=== PATIENT | female | born 1955 | race Caucasian/White ===

== ENCOUNTER → 2020-05-28 10:32 | Outpatient (CLI) | payer BC | END | disposition home or self-care (01) | LOC: D.HCCECHO 10:32 | PROVIDERS: ATTEND Internal Medicine Cardiovascular Disease | DX: R01.1 Cardiac murmur, unspecified (principal); I20.9 Angina pectoris, unspecified ==

== ENCOUNTER 2020-06-11 10:49 | Outpatient (CLI) | payer BC ==
[~2020-06-11] VITALS: Ht 157.5 cm; Wt 106.4 kg
--- NOTE | ~2020-06-11 | HEMODYNAMI ---
PATIENT:CHANDLER CERVANTES MEDICAL RECORD: [id number] : 57 LOCATION:[facility] ADMISSION DATE: 06/11/20 Generatedon:06/11/202013:03 Patient name: CHANDLER CERVANTES Patient #: [id number] SSN: [id number] : 1955 Date of study: 06/11/2020 Page: Of Hemodynamic Procedure Report Patient Data Patient Demographics Procedure consent was obtained First Name: CHANDLER Gender: Female Last Name: JAMEL DUNN : 1955 Middle Initial: RENETTA Age: 65 year(s) Patient #: [id number] Race: Unknown SSN: [id number] Additional ID: [id number] Contact details [address]: [address] [place] [address] State: [place] City: [place] Zip code: [address] Past Medical History Allergies Allergen Reaction Date Comments Reported Other allergy 06/11/2020 lisinopril Admission Admission Data Admission Date: 06/11/2020 Admission Time: 10:49 Arrival Date: 06/11/2020 Arrival Time: 0:00 Height (in.): 61.81 BSA: 2.04 (m2) Height (cm.): 157 BMI: 43 (kg/m2) Weight (lbs.): 233.69 Weight (kg.): 106 Lab Results Lab Result Date: 06/11/2020 Lab Result Time: 0:00 Biochemistry Name Units Result Min Max BUN mg/dl 14 --(--*-)-- 7 18 Creatinine mg/dl 0.7 --(*---)-- 0.6 1.3 eGFR ml/min 88.70707 -*(----)-- 90 120 NONAFRICAN CBC Name Units Result Min Max Hematocrit % 41.8 -*(----)-- 42 54 Hemoglobin g/dl 14 --(*---)-- 13.5 17.5 Procedure Procedure Types Cath Procedure Diagnostic Procedure [facility] Coronaries only Aortic Root Angiography Procedure Description Procedure Date Procedure Date: 06/11/2020 Procedure Start Time: 12:48 Procedure End Time: 13:01 Procedure Staff Name Function Dago Da Silva MD Performing Physician Shruti Lentz RT Monitor Mansi Roach RN Nurse Maria De Jesus Osborn RT Scrub Procedure Data Cath Procedure Fluoroscopy Diagnostic fluoroscopy Total fluoroscopy Time: 4.2 time: 4.2 min min Diagnostic fluoroscopy Total fluoroscopy dose: 674 dose: 674 mGy mGy Contrast Material Contrast Material Type Amount (ml) Isovue 300 90 Entry Location Entry Primary Successful Side Size Upsize Upsize Entry Closure Briggs ccessful Closure Location (Fr) 1 (Fr) 2 (Fr) Remarks Device Remarks Radial Right 6 Fr Mechanical artery Short Compression Estimated blood loss: 5 ml Diagnostic catheters Device Type Used For End Catheter Placement DIAGNOSTIC Gay 110cm 5 Procedure Fr catheter ([id number]) DIAGNOSTIC Pigtail 5Fr LV Angiography catheter ([id number]) Procedure Complications No complications Procedure Medications Medication Administration Route Dosage 0.9% NaCl I.V. 100 ml/hr Oxygen etCO2 Nasal cannula 2 l/min Lidocaine 2% added to field 20 Heparin Flush Bag added to field 2 bags (1000units/500ml NS) Radial Cocktail added to field 1 syringe (Verapamil 2mg/Nitro 400mcg/Heparin 1500units) Versed I.V. 2 mg Fentanyl I.V. 50 mcg Hemodynamics Rest BSA: 2.04 (m2) HGB: 14 (g/dl) O2 Consumption: Estimated: 185.53 (ml/min) O2 Cons umption indexed: Estimated:90.95 (ml/min/m) Heart Rate: 63 (bpm) Snapshots Pre Cath Intra NCS Post Cath Vital Signs Time Heart Resp SPO2 etCO2 NIBP (mmHg) Rhythm Pain Sedation Rate (ipm) (%) (mmHg) Status Level (bpm) 12:36:19 68 20 99 41.8 175/83(151) NSR 0 (11) 10(A) , No pain 12:41:11 71 18 98 0.7 175/85(113) NSR 0 (11) 10(A) , No pain 12:45:54 71 16 96 11.9 158/83(110) NSR 0 (11) 10(A) , No pain 12:50:43 78 17 98 37.3 132/72(110) NSR 0 (11) 10(A) , No pain 12:55:13 81 16 93 49.2 145/87(131) NSR 0 (11) 10(A) , No pain 12:59:50 92 42.6 165/89(115) NSR 0 (11) 10(A) , No pain Medications Time Medication Route Dose Verified Delivered Reason Notes E ffectiveness by by 12:35:01 0.9% NaCl I.V. 100 Dago Mansi used for ml/hr Avinash Doc procedure MD MEYER 12:35:08 Oxygen etCO2 2 l/min Dago Mansi used for Nasal Avinash Doc procedure cannula MD MEYER 12:35:12 Lidocaine 2% added 20ml Dago Dago for local to vial [facility] anesthetic field MD IBARRA 12:35:16 Heparin Flush added 2 bags Dago Dago used for Bag to [facility] procedure (1000units/500ml field MD IBARRA NS) 12:35:22 Radial Cocktail added 1 Dago Dago used for (Verapamil to syringe [facility] procedure 2mg/Nitro field MD IBARRA 400mcg/Heparin 1500units) 12:47:48 Versed I.V. 2 mg Dago Mansi for [facility] Eugen[facility] Roach sedation MD MEYER 12:47:58 Fentanyl I.V. 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 12:21:33 Maria De Jesus Osborn RT(R) sent for patient. Start room use. 12:21:35 Time tracking: Regular hours (M-F 7:00 - 5:00) 12:21:43 Plan of Care:Hemodynamics will remain stable., Cardiac rhythm will remain stable., Comfort level will be maintained., Respiratory function will remain adequate., Patient/ family verbilizes understanding of procedure., Procedure tolerated without complication., Recovers from procedure without complications.. 12:21:51 ACC Patient presents with Stable Angina CCS Anginal Class 1--Ordinary physical activity does not cause angina, angina occurs with strenuos, rapid, or prolonged activity.. 12:25:13 Lab Result : eGFR NONAFRICAN 88.52092 ml/min 12:25:13 Lab Result : Creatinine 0.7 mg/dl 12:25:13 Lab Result : BUN 14 mg/dl 12:25: Lab Result : Hematocrit 41.8 % 12:25:13 Lab Result : Hemoglobin 14 g/dl 12:25:19 Arrival Date: 06/11/2020 12:00:00 AM 12:25:24 Patient Height : 61.81 inches 12:25:29 Patient Weight : 233.69 lbs 12:25:39 Patient received from Pre/Post Procedure Room to CCL 1 Alert and oriented. Tansferred to table in Supine position. 12:25:41 Warm blankets applied, and geri hugger turned on for patient comfort. 12:25:41 Correct patient and procedure confirmed by team. 12:25:42 ECG and BP/O2 sat monitors applied to patient. 12:25:52 H&P Date Dictated: 06/11/2020 H&P Addendum completed by physician on day of procedure. (MUST COMPLETE FOR ALL OUTPATIENTS), New H&P dictated by physician.. 12:25:54 Pre-procedure instructions explained to patient. 12:25:55 Pre-op teaching completed and patient verbalized understanding. 12:25:59 Family in patients room. 12:26:02 Patient NPO since Midnight. 12:26:19 Patient allergic to Other allergylisinopril 12::24 Is the patient allergic to Iodine/contrast media? No. 12:26:38 Lab results completed and on chart. 12:27:13 Stress Test: yes; abnormal anterior and lateral 12:29:06 Is patient on blood thinner?No 12:29:09 Patient diabetic? No. 12:29:16 ----Pre-sedation anethsthesia assessment.---- 12:29:19 Previous problem with sedation/anesthesia? No ? 12:29:22 Snore? Yes 12:29:25 Sleep apnea? No 12:29:27 Opens mouth fully? Yes 12:29:32 Deviated septum? Unknown 12:29:35 Sticks out tongue? Yes 12:29:38 Airway obstruction? No ? 12:29:42 Dentures? No ? 12:29:43 - 12:29:51 Pre procedure: right dorsailis pedis pulse 2+ Normal; easily identifiable; not easily obliterated 12:30:03 IV patent on arrival in left forearm with 0.9% NaCl at [facility]. 12:30:20 Right Radial & Right Groin area was prepped with chlora-prep and draped in sterile fashion 12:30: Alarms reviewed by R. N. 12:30: Sharps counted by scrub and verified by R.N. 12:30:43 Vital chart was started 12:30:46 Baseline sample Acquired. 12:30:52 Rhythm: sinus rhythm 12::56 Full Disclosure recording started 12:35: 0.9% NaCl 100 ml/hr I.V. was administered by Mansi Roach RN; used for procedure; Verbal order read back and verified. 12:35:08 Oxygen 2 l/min etCO2 Nasal cannula was administered by Mansi Roach RN ; used for procedure; Verbal order read back and verified. 12:35:12 Lidocaine 2% 20ml vial added to field was administered by Dago Da Silva MD; for local anesthetic; Verbal order read back and verified. 12:35:16 Heparin Flush Bag (1000units/500ml NS) 2 bags added to field was administered by Dago Da Silva MD; used for procedure; Verbal order read back and verified. 12:35:22 Radial Cocktail (Verapamil 2mg/Nitro 400mcg/Heparin 1500units) 1 syring e added to field was administered by Dago Da Silva MD; used for procedure; Verbal order read back and verified. 12:36:29 Baseline sample Acquired. 12:39:41 Risk of Mortality: 0.1 12:39:45 Risk of blood transfusion: 0.2 12:39:49 Risk of ANGELITA: 0.7 12:39:57 Use device set Radial Dx or PCI 12:39:59 ACIST Syringe (95696) opened to sterile field. 12:40:00 Medline Cath Pack (GIEC46916) opened to sterile field. 12:40:01 Bag Decanter (2002) opened to sterile field. 12:40:02 ACIST Hand Control (01046) opened to sterile field. 12:40:02 ACIST Manifold (86468) opened to sterile field. 12:40:04 MBrace Wrist Support ([id number]) opened to sterile field. 12:40:05 EMERALD Guide Wire (206-894) opened to sterile field. 12:40:06 SHEATH 6FR RAIN (7058232) opened to sterile field. 12:43:38 Zero performed for pressure channel P1 12:46:05 Physician arrived 12:46:06 --------ALL STOP TIME OUT------ 12:46:07 Final Timeout: patient, procedure, and site verified with staff and physician. All members of the team are in agreement. 12:46:10 Right Radial & Right Groin site verified by team. 12:46:16 Fire Safety Assessment: A--An alcohol-based skin anteseptic being used preoperatively., C--Open oxygen or nitrous oxide is being used., D--An ESU, laser, or fiber-optic light is being used. 12:46:24 Physical assessment completed. ASA score P 2 - A patient with mild systemic disease as per Dago Da Silva MD. 12:46:33 2) 60-89 Mildly reduced kidney function, and other findings (as for stage 1) point to kidney disease. 12:46:39 Maximum allowable contrast dose (3.7 X eGFR X 0.75)247 ml. 12:47:48 Versed 2 mg I.V. was administered by Mansi Roach RN; for sedation; Verbal order read back and verified. 12:47:54 Sedation plan: IV Moderate Sedation Medication:Versed, Fentanyl 12:47:58 Fentanyl 50 mcg I.V. was administered by Mansi Roach RN; for sedation ; Verbal order read back and verified. 12:48:00 Procedure started. 12:48:09 Local anesthetic to right radial artery with Lidocaine 2% by Dago Da Silva MD.INITIAL ACCESS ONLY 12:49:08 A 6 Fr Short sheath was inserted into the Right Radial artery 12:49:22 A DIAGNOSTIC Gay 110cm 5 Fr catheter (120226) was advanced over the wire and used for Procedure. 12:51:00 LCA angiography performed. 12:51:08 Injector settings: Ml/sec: 3, Volume: 6, 12:52:49 RCA angiography performed. 12:54:25 Injector settings: Ml/sec: 3, Volume: 6, 12:54:28 Catheter removed. 12:54:45 A DIAGNOSTIC Pigtail 5Fr catheter ([id number]) was advanced over the wire and used for LV Angiography. 12:56:12 Aortic Root visualized 12:56:19 Injector settings: Ml/sec: 10, Volume: 20, 12:56:32 Catheter removed. 12:56:50 ZEPHYR REGULAR TR BAND (154942) opened to sterile field. 12:57:16 Sheath removed intact; hemostasis achieved with Mechanical Compression to the Right Radial artery. 12:57:29 Procedure ended.(Physican Out) 12:57:46 Contrast amount:Isovue 300 90ml. 12:57:50 Maximum allowable dose exceeded? No. 12:57:52 Sharps counted by scrub and verified by R.N. 12:58:01 Fluoroscopy time 04.20 minutes. 12:58:10 Fluoroscopy dose: 674 mGy 12:58:10 Flurop Dose total: 674 12:58:18 Dose Area Product 67792 mGy/cm. 12:58:22 [place] band inflated with 10cc of air. 12:58:26 Insertion/operative site no bleeding no hematoma. 12:58:35 Post right radial artery:stable 12:58:41 Post-procedure physical assessment completed. ASA score P 2 - A patient with mild systemic disease as per Dago Da Silva MD. 12:58:45 Post procedure rhythm: unchanged. 12:58:50 Estimated blood loss: 5 ml 12:58:52 Post procedure instruction explained to patient.Patient verbalizes understanding. 12:58:53 Patient needs reinforcement of post procedure teaching. 12:59:45 Procedure type changed to Cath procedure, Diagnostic procedure, C, Coronaries only, Aortic Root Angiography 13:00:29 Procedure and supply charges have been captured, reviewed, submitted an d are correct. 13:01:10 Procedure Complication : No complications 13:01:21 Vital chart was stopped 13:01:25 [facility] Findings: mild to moderate CAD (<70%) 13:01:26 Operative report dictated upon procedure completion. 13:01:28 See physician's report for complete and final results. 13:01:31 Report given to Pre/Post Procedure Room. 13:01:37 Patient transfered to Pre/Post Procedure Room with Stretcher. 13:01:41 Procedure ended. 13:01:41 Full Disclosure recording stopped 13:01:44 End room use (Document Last) Device Usage Item Name Manufacture Quantity Catalog Hospital Part Current Minima l Lot# / Number Charge Number Stock Stock Serial# Code ACIST Acist 1 19583 488708 178461 190905 20 Syringe Medical (94788) Systems Inc Medline Medline 1 [id number] 36067 214410 5 Cath Pack ([id number]) Bag Microtek 1 2001S 152086 98596 945716 5 Decanter Medical Inc. () ACIST Hand Acist 1 37010 514827 354067 478774 5 Control Medical (14781) Systems Inc ACIST Acist 1 13615 827035 110291 230565 5 Manifold Medical (72878) Systems Inc MBrace Advanced 1 [id number] 526871 00405 283120 5 Wrist Vascular Support Dynamics ([id number]) EMERALD Cardinal 1 502-455 258671 649575 396175 5 Guide Wire Health (502-455) SHEATH 6FR Cardinal 1 3805574 790148 8534298 469422 5 [facility] Health (5587383) DIAGNOSTIC Terumo 1 40-5013 122906 189841 580680 5 Gay 110cm 5 Fr catheter (463167) DIAGNOSTIC Cardinal 1 [id number] 199345 396679 660212 5 Pigtail 5Fr Health catheter (548326M) ZEPHYR Cardinal 1 022606 541894 1983016 231914 5 REGULAR TR Health BAND (716873) Signature Audit Mcclure Stage Time Signature Unsigned Intra-Procedure 06/11/2020 Shruti 1:02:31 PM Mary Carmen RT(R) (CV) Intra-Procedure 06/11/2020 Mansi Roach 1:02:58 PM RN Intra-Procedure 06/11/2020 Dago Pardo 1:03:42 PM Eugenio IBARRA [place] [place] [address]
[2020-06-11] MEDS ORDERED: DILTIAZEM 24HR180 M4 PO (11:08)
[2020-06-11] MEDS ORDERED: TOPROL XL50 MG PO (11:08)
[2020-06-11 11:21] VITALS: BP 151/64; Ht 157.5 cm; Wt 106.4 kg
[2020-06-11 11:53] LABS: BASOPHILS 0.5 % (0-2); EOSINOPHILS 1.8 % (0-7); HEMATOCRIT 41.8 % (36.0-48.0); IMMATURE GRANULOCYTES 0.1 % (0-5); MCHC 33.5 g/dL (31.0-37.0); MCV 89.7 fL (80.0-100.0); MEAN PLATELET VOLUME 9.2 fL (7.4-10.4); NEUTROPHILS 53.6 % (40-80); PLATELET COUNT 288 10x3/uL (130-400); RBC 4.66 10x6/uL (4.00-5.40); RDW 13.3 % (11.5-14.5); WBC 7.4 10x3/uL (4.8-10.8)
[2020-06-11 12:06] LABS: ALT (SGPT) 25 U/L (10-68); CALC OSMOLALITY 278 mosm/kg (275-300); CALCIUM 9.6 mg/dL (8.5-10.1); CARBON DIOXIDE 30.2 mmol/L (21.0-32.0); CHLORIDE - SERUM 104 mmol/L (98-107); CHOL - HDL RATIO 10.6 ratio (2.3-4.1); CHOLESTEROL, TOTAL 319 mg/dL (0-200); CREATININE - SERUM 0.7 mg/dL (0.6-1.3); GLUCOSE 100 mg/dL (74-106); HDL CHOLESTEROL 30 mg/dL (32-96); LDL CHOLESTEROL 214 mg/dL (0-100); LDL-HDL RATIO 7.1 ratio (1.5-3.5); SODIUM 139 mmol/L (136-145); TRIGLYCERIDE 378 mg/dL (30-200); UREA NITROGEN 14 mg/dL (7-18); eGFR NON AFRICAN AMERICAN 89 mL/min (90-120)
--- NOTE | 2020-06-11 13:05 | NUR ---
DR RILEY IN PT ROOM, DISCUSSED WITH PT'S PROCEDURE RESULTS AND PLAN OF CARE. NO NEW ORDERS RECEIVED.
--- NOTE | 2020-06-11 13:08 | NUR ---
PT RECEIVED BACK TO ROOM VIA STRETCHER FOR RECOVERY. PT AWAKE BUT DROWSY. DENIES PAIN OR DISCOMFORT. IV PATENT INFUSING VIA ORDERS TO R ARM. ZYPHER BAND AND IMMOBILIZER IN PLACE TO R ARM/WRIST, DRESSING CDI NO S/S HEMATOMA OR BLEEDING NOTED. ARM PINK AND WARM, CAP REFILL BRISK. PT INSTRUCTED NOT TO USE ARM, SHE VERBALIZED UNDERSTANDING. PT PLACED ON CARDIAC MONITORS AND O2 VIA NC AT 2L. HR NSR RATE 65, BP 143/72, RR 14, SAT 96. CALL LIGHT IN REACH, AT BS.
--- NOTE | 2020-06-11 13:25 | NUR ---
PT RESTING COMFORTABLY, DENIES PAIN OR DISCOMFORT. SPRITE SERVED PER PT REQUEST. ZBAND AND IMMOBILIZER IN PLACE, NO S/S HEMATOMA OR BLEEDING NOTED. ARM PINK AND WARM, CAP REFILL BRISK. VSS AT PRESENT, CALL LIGHT IN REACH
--- NOTE | 2020-06-11 14:05 | NUR ---
5CC AIR REMOVED FROM Z BAND PER PROTOCOL. NO BLEEDING OR S/S HEMATOMA NOTED. VSS. CALL LIGHT IN REACH. PT OFFERED SANDWICH, SHE DECLINES AT THIS TIME. NO OTHER NEEDS VOICED.
--- NOTE | 2020-06-11 14:34 | NUR ---
3 ADD'L CC AIR REMOVED FROM Z BAND. NO BLEEDING OR S/S HEMATOMA NOTED. PT DENIES PAIN OR NEEDS AT THIS TIME. VSS. CALL LIGHT IN REACH
--- NOTE | 2020-06-11 14:55 | NUR ---
DISCHARGE INSTRUCTIONS REVIEWED W PT AND . BOTH VERBALIZED UNDERSTANDING. IV REMOVED W CATH INTACT, MONITORS REMOVED. ZBAND AND IMMOBILIZER IN PLACE, PT UP TO DRESS FOR DISCHARGE.
--- NOTE | 2020-06-11 15:05 | NUR ---
1500 PT AMBULATED TO BR, VOIDING W/O DIFFICULITY. ZBAND AND REMAINING AIR REMOVED, NO BLEEDING OR S/S HEMATOMA NOTED. 2X2 AND SM TEGADERM DRESSING APPLIED. PT THEN DISCHARGED VIA WC TO WAITING IN PRIVATE VEHICLE. PT HAD ALL BELONGINGS AND DISCHARGE PAPERWORK
--- NOTE | 2020-06-11 15:26 | OP ---
PATIENT NAME: CHANDLER CERVANTES MEDICAL RECORD: [id number] :57 LOCATION:D.CAT ADMISSION DATE: SURGEON: YORDY RILEY MD DATE OF OPERATION: 06/11/2020 PROCEDURE: Left heart catheterization, selective coronary angiography, right radial approach. CATHETERS: [place]lake catheter, radial sheath. The procedure was well tolerated. The patient returned to ortiz, sheath removed and TR band was placed. FINDINGS: Left ventriculography was not performed. Aortic root injection was performed to assess aortic root anatomy, possible aortic valve replacement in the future that shows normal size aortic root with trivial aortic insufficiency. CORONARY ANATOMY: LEFT MAIN: Left main is free of disease. LAD: Free of disease in the diagonal system. CIRCUMFLEX: Free of disease in the marginal system. RIGHT CORONARY ARTERY: Dominant artery, gives rise to PDA, free of disease. IMPRESSION: Known moderate , no significant aortic insufficiency. Aortic root dilation via aortic root injection. Normal coronary anatomy. TRANSINT:[id number] Voice Confirmation ID: [id number] DOCUMENT ID: [id number] YORDY RILEY MD at 1526 CC: [id number] DICTATION DATE: 06/11/20 1304 BUSINESS INTELLIGENCE ARCHITECT: 06/11/20 1316 DEP CLI 06/11/[address] [facility] [address] [place] [address]
== END 2020-06-11 15:06 | disposition home or self-care (01) ==
LOC: D.CATH 10:49
PROVIDERS: ATTEND Internal Medicine Interventional Cardiology
DX: I10 Essential (primary) hypertension (principal); I35.0 Nonrheumatic aortic (valve) stenosis; R00.0 Tachycardia, unspecified; I20.9 Angina pectoris, unspecified